=== PATIENT | male | born 1960 | race Caucasian/White ===

== ENCOUNTER 2019-11-22 19:59 | Inpatient (IN) ==
[2019-11-22 20:21] LABS: Immature Granulocytes % 0.9 % (0-4); Lymphocytes % 9.1 %
[2019-11-22 20:25] LABS: Basophils # 0.1 K/mcL (0.0-0.2); Basophils % 0.5 %; Eosinophils % 0.1 %; Hemoglobin 16.4 g/dL (12.9-16.9); Lymphocytes # 0.9 K/mcL (0.6-4.6); Mean Corpuscular HGB Conc 29.5 g/dL (31.6-35.5); Mean Corpuscular Hemoglobin 28.3 pg (28.0-33.3); Mean Platelet Volume 8.9 fL (9.4-12.4); Monocytes # 1.1 K/mcL (0.0-1.3); Monocytes % 11.2 %; Neutrophils # 7.9 K/mcL (1.6-8.9); Nucleated Red Blood Cells 2.1 /100 WBC (0); Platelet Count 188 K/mcL (140-400); Red Blood Count 5.79 M/mcL (4.19-5.50); Red Cell Distribution Width 18.4 % (11.5-14.5); Segmented Neutrophils % 78.2 %; White Blood Count 10.1 K/mcL (4.3-11.1)
[2019-11-22 20:27] LABS: Hematocrit 55.6 % (37.5-50.1)
[2019-11-22 20:41] LABS: BUN/Creatinine Ratio 54 (6-26); Blood Urea Nitrogen 43 mg/dL (6-20); Calcium 9.3 mg/dL (8.6-10.3); Carbon Dioxide 37 mEq/L (23-29); Chloride 94 mEq/L (98-107); Glucose 155 mg/dL (70-105); Osmolality,Calculated 292 (280-300); Potassium 5.2 mEq/L (3.5-5.1); Sodium 134 mEq/L (136-145); eGFR For African Americans > 60 (> 60); eGFR For Non-African Americans > 60 (> 60)
[2019-11-22 20:42] LABS: Troponin I < 0.03 ng/mL (< 0.04)
[2019-11-22] MEDS ORDERED: Furosemide 60 MG in 0.9 % Sodium Chloride 50 ML IV ONE (21:14)
[2019-11-22] MEDS ORDERED: Furosemide 40 MG/4 ML VIAL IVP ONE (21:25)
[2019-11-22 21:36] LABS: Adenovirus Not Detected (Not Detect); Bordetella Pertussis Not Detected (Not Detect); Chlamydophila pneumoniae Not Detected (Not Detect); Coronavirus 229E Not Detected (Not Detect); Coronavirus HKU1 Not Detected (Not Detect); Coronavirus NL63 Not Detected (Not Detect); Coronavirus OC43 Not Detected (Not Detect); Human Metapneumovirus Not Detected (Not Detect); Human Rhinovirus/Enterovirus Not Detected (Not Detect); Influenza A Subtype 2009 H1 Not Detected (Not Detect); Influenza B Not Detected (Not Detect); Mycoplasma pneumoniae Not Detected (Not Detect); Parainfluenza Virus 1 Not Detected (Not Detect); Parainfluenza Virus 2 Not Detected (Not Detect); Parainfluenza Virus 3 Not Detected (Not Detect); Parainfluenza Virus 4 Not Detected (Not Detect); Respiratory Syncytial Virus Not Detected (Not Detect); SARS-CoV-2 Not Detected (Not Detect)
[2019-11-22] MEDS ORDERED: Ipratropium/Albuterol Neb 3 ML IH ONE (21:42)
[2019-11-22] MEDS ORDERED: Dexamethasone 4 MG/ML VIAL IVP ONE (21:42)
[2019-11-22 21:53] LABS: ABG Base Excess 7 mEq/L (-2 to 3); ABG HCO3 42 mEq/L (21-27); ABG Oxygen Saturation 90 % (95-98); ABG PCO2 106 mmHg (35-45); ABG PO2 77 mmHg (85-104); ABG TCO2 45 mEq/L (20-26)
[2019-11-22] MEDS ORDERED: *HR* Promethazine 25 MG/ML VIAL IVP PRN (22:13)
[2019-11-22] MEDS ORDERED: Naloxone 0.4 MG/ML INJ IVP PRN (22:13)
[2019-11-22] MEDS: levoFLOXacin 750 MG/150 ML 750 MG/150 ML BAG IVPB SCH (23:25)
[2019-11-23 00:03] LABS: ABG Base Excess 4 mEq/L (-2 to 3); ABG HCO3 42 mEq/L (21-27); ABG Oxygen Saturation 90 % (95-98); ABG PCO2 127 mmHg (35-45); ABG PH 7.13 pH Units (7.32-7.45); ABG PO2 84 mmHg (85-104); ABG TCO2 46 mEq/L (20-26); Blood Gas Modality BiLevel
[2019-11-23] MEDS ORDERED: Furosemide 40 MG/4 ML VIAL ONE ×2 (00:04→15:48)
[2019-11-23] MEDS ORDERED: Furosemide 40 MG/4 ML VIAL IVP ONE ×2 (00:07→15:50)
[2019-11-23] MEDS: FentaNYL (PF) 1,000 MCG/100 ML IV.SOLN IVC SCH ×2 (01:20→08:32)
[2019-11-23] MEDS ORDERED: Perflutren Lipid Microsphere 1.3 ML in 0.9 % Sodium Chloride 8.7 ML IVP PRN (01:48)
[2019-11-23] MEDS ORDERED: Dextrose Gel 15 GM/37.5 ML TUBE PO PRN ×2 (01:50)
[2019-11-23] MEDS ORDERED: *HR* Dextrose 50 % in Water (Vial) 50 ML VIAL IVP PRN (01:50)
[2019-11-23] MEDS ORDERED: D5% in Water 1,000 ML IVC PRN (01:50)
[2019-11-23 02:12] LABS: ABG Base Excess 8 mEq/L (-2 to 3); ABG HCO3 36 mEq/L (21-27); ABG Oxygen Saturation 95 % (95-98); ABG PCO2 58 mmHg (35-45); ABG PO2 80 mmHg (85-104); ABG TCO2 38 mEq/L (20-26); Blood Gas Modality ASSIST CONTROL; Blood Gas VT 500 cc
[2019-11-23] MEDS: Artificial Tears SOLN 15 ML BOTTLE BOTH EYES SCH ×5 (05:06→20:21)
[2019-11-23] MEDS: Insulin LISPRO 300 UNITS/3 ML VIAL SQ SCH ×3 (05:09→18:43)
[2019-11-23] MEDS ORDERED: *HR* Heparin 5,000 UNIT/ML VIAL SQ SCH (06:00)
[2019-11-23 06:15] LABS: ABG Base Excess 9 mEq/L (-2 to 3); ABG HCO3 34 mEq/L (21-27); ABG Oxygen Saturation 95 % (95-98); ABG PCO2 46 mmHg (35-45); ABG PH 7.47 pH Units (7.32-7.45); ABG PO2 70 mmHg (85-104); ABG TCO2 35 mEq/L (20-26); Blood Gas Modality ASSIST CONTROL; Blood Gas VT 500 cc
[2019-11-23 06:38] LABS: Amphetamine Screen,Urine Negative ng/mL (Cutoff=1000); Barbiturate Screen,Urine Negative ng/mL (Cutoff=200)
[2019-11-23 06:39] LABS: Benzodiazepines Screen,Urine Negative ng/mL (Cutoff=300); Cannabinoid Screen,Urine Negative ng/mL (Cutoff = 50); Cocaine Screen,Urine Negative ng/mL (Cutoff= 300); Opiate Screen,Urine Negative ng/mL (Cutoff=300); Phencyclidine Screen,Urine Negative ng/mL (Cutoff=25)
[2019-11-23] MEDS ORDERED: Albuterol 2.5 MG/3 ML NEBULIZER IH PRN (07:13)
[2019-11-23] MEDS ORDERED: Isovue-370 500 ML BOTTLE IVP ONE (07:53)
[2019-11-23] MEDS: Chlorhexidine Rinse 15 ML MOUTHWASH MM SCH ×2 (08:04→20:22)
[2019-11-23 08:57] LABS: Basophils % 0.4 %; Hematocrit 53.7 % (37.5-50.1); Hemoglobin 16.3 g/dL (12.9-16.9); Immature Granulocytes % 0.8 % (0-4); Lymphocytes # 0.7 K/mcL (0.6-4.6); Lymphocytes % 8.2 %; Mean Corpuscular HGB Conc 30.4 g/dL (31.6-35.5); Mean Corpuscular Hemoglobin 27.4 pg (28.0-33.3); Mean Corpuscular Volume 90.4 fL (83.0-100.0); Mean Platelet Volume 9.7 fL (9.4-12.4); Monocytes # 0.9 K/mcL (0.0-1.3); Monocytes % 10.8 %; Neutrophils # 6.8 K/mcL (1.6-8.9); Nucleated Red Blood Cells 1.2 /100 WBC (0); Platelet Count 137 K/mcL (140-400); Red Blood Count 5.94 M/mcL (4.19-5.50); Red Cell Distribution Width 17.5 % (11.5-14.5); Segmented Neutrophils % 79.8 %; White Blood Count 8.5 K/mcL (4.3-11.1)
[2019-11-23] MEDS ORDERED: Furosemide 40 MG/4 ML VIAL IVP SCH ×2 (09:00→16:00)
[2019-11-23 09:09] LABS: INR 1.4; Prothrombin Time 15.6 Seconds (9.4-12.1)
[2019-11-23 09:22] LABS: Alanine Aminotransferase 10 Units/L (7-52); Albumin 3.4 g/dL (3.5-5.7); Albumin/Globulin Ratio 1.5 (1.1-2.2); Alkaline Phosphatase 54 Units/L (34-104); Aspartate Amino Transferase 14 Units/L (13-39); BUN/Creatinine Ratio 47 (6-26); Bilirubin,Total 0.9 mg/dL (0.3-1.0); Blood Urea Nitrogen 35 mg/dL (6-20); Carbon Dioxide 36 mEq/L (23-29); Chloride 93 mEq/L (98-107); Globulin 2.2 g/dL (2.4-3.5); Glucose 128 mg/dL (70-105); Magnesium 1.8 mg/dL (1.6-2.6); Osmolality,Calculated 292 (280-300); Phosphorous 2.9 mg/dL (2.7-4.5); Potassium 4.5 mEq/L (3.5-5.1); Sodium 136 mEq/L (136-145); Total Protein 5.6 g/dL (6.4-8.9); eGFR For African Americans > 60 (> 60); eGFR For Non-African Americans > 60 (> 60)
[2019-11-23] MEDS: Dexmedetomidine HCl 400 MCG/100 ML MLS IVC SCH ×2 (11:31→19:49)
[2019-11-23] MEDS: Pantoprazole 40 MG VIAL IVP SCH (14:32)
[2019-11-23] MEDS: *HR* Heparin 5,000 UNIT/ML VIAL SQ SCH (14:32)
[2019-11-23 14:35] LABS: ABG Base Excess 13 mEq/L (-2 to 3); ABG HCO3 41 mEq/L (21-27); ABG Oxygen Saturation 96 % (95-98); ABG PCO2 60 mmHg (35-45); ABG PH 7.44 pH Units (7.32-7.45); ABG PO2 80 mmHg (85-104); ABG TCO2 43 mEq/L (20-26); Blood Gas VT 500 cc
[2019-11-23] MEDS ORDERED: *HR* Propofol 200 MG/20 ML VIAL IVP ONE (15:28)
[2019-11-23] MEDS ORDERED: *HR* Midazolam HCl 5 MG/5 ML VIAL IVP ONE ×2 (15:28→16:01)
[2019-11-23] MEDS ORDERED: *HR* Midazolam HCl 2 MG/2 ML VIAL IVP ONE ×2 (15:28→16:01)
[2019-11-23] MEDS: Ipratropium/Albuterol Neb 3 ML IH SCH ×2 (15:59→22:43)
[2019-11-23] MEDS ORDERED: *HR* Etomidate 20 MG/10 ML AMPUL IVP ONE (16:01)
[2019-11-23 16:28] LABS: ABG Base Excess 13 mEq/L (-2 to 3); ABG HCO3 41 mEq/L (21-27); ABG Oxygen Saturation 98 % (95-98); ABG PCO2 60 mmHg (35-45); ABG PH 7.45 pH Units (7.32-7.45); ABG PO2 112 mmHg (85-104); ABG TCO2 43 mEq/L (20-26); Blood Gas Modality avaps; Blood Gas VT 550 cc
[2019-11-23] MEDS: MethylPREDNISolone 40 MG/ML VIAL IVP SCH (16:54)
[2019-11-23] MEDS: levoFLOXacin 750 MG/150 ML 750 MG/150 ML BAG IVPB SCH (17:05)
[2019-11-23] MEDS ORDERED: *HR* LORazepam 2 MG/ML VIAL IVP PRN (19:31)
[2019-11-23] MEDS ORDERED: *HR* LORazepam 2 MG/ML VIAL ONE (19:45)
[2019-11-23] MEDS: *HR* LORazepam 2 MG/ML VIAL IVP PRN (19:45)
[2019-11-24] MEDS: Dexmedetomidine HCl 400 MCG/100 ML MLS IVC SCH ×6 (00:14→22:51)
[2019-11-24] MEDS: Artificial Tears SOLN 15 ML BOTTLE BOTH EYES SCH ×7 (00:15→23:52)
[2019-11-24] MEDS: *HR* Heparin 5,000 UNIT/ML VIAL SQ SCH ×4 (00:15→20:15)
[2019-11-24] MEDS: Insulin LISPRO 300 UNITS/3 ML VIAL SQ SCH ×5 (00:29→23:52)
[2019-11-24] MEDS: Ipratropium/Albuterol Neb 3 ML IH SCH ×4 (04:06→21:59)
[2019-11-24 04:27] LABS: Basophils % 0.2 %; Eosinophils % 0.1 %; Nucleated Red Blood Cells 0.2 /100 WBC (0)
[2019-11-24 04:29] LABS: Hemoglobin 16.6 g/dL (12.9-16.9); Immature Granulocytes % 0.8 % (0-4); Immature Platelets 3.4 % (1.1-6.1); Lymphocytes # 0.7 K/mcL (0.6-4.6); Lymphocytes % 8.7 %; Mean Corpuscular Hemoglobin 27.2 pg (28.0-33.3); Mean Corpuscular Volume 90.7 fL (83.0-100.0); Mean Platelet Volume 9.2 fL (9.4-12.4); Monocytes # 0.8 K/mcL (0.0-1.3); Monocytes % 9.9 %; Platelet Count 133 K/mcL (140-400); Red Blood Count 6.11 M/mcL (4.19-5.50); Segmented Neutrophils % 80.3 %; White Blood Count 8.4 K/mcL (4.3-11.1)
[2019-11-24 04:53] LABS: BUN/Creatinine Ratio 34 (6-26); Blood Urea Nitrogen 32 mg/dL (6-20); Carbon Dioxide 41 mEq/L (23-29); Chloride 92 mEq/L (98-107); Glucose 156 mg/dL (70-105); Osmolality,Calculated 294 (280-300); Potassium 4.7 mEq/L (3.5-5.1); Sodium 137 mEq/L (136-145); eGFR For African Americans > 60 (> 60); eGFR For Non-African Americans > 60 (> 60)
[2019-11-24 05:21] LABS: Hematocrit 55.4 % (37.5-50.1); Neutrophils # 6.8 K/mcL (1.6-8.9)
[2019-11-24] MEDS: MethylPREDNISolone 40 MG/ML VIAL IVP SCH ×2 (05:59→17:59)
[2019-11-24] MEDS: Chlorhexidine Rinse 15 ML MOUTHWASH MM SCH ×2 (07:31→20:14)
[2019-11-24] MEDS: Furosemide 40 MG/4 ML VIAL IVP SCH ×2 (07:36→20:16)
[2019-11-24] MEDS: Pantoprazole 40 MG VIAL IVP SCH (07:36)
[2019-11-24] MEDS: *HR* LORazepam 2 MG/ML VIAL IVP PRN ×4 (10:11→18:12)
[2019-11-24 17:40] LABS: ABG Base Excess 17 mEq/L (-2 to 3); ABG HCO3 47 mEq/L (21-27); ABG Oxygen Saturation 93 % (95-98); ABG PCO2 70 mmHg (35-45); ABG PH 7.44 pH Units (7.32-7.45); ABG PO2 70 mmHg (85-104); ABG TCO2 50 mEq/L (20-26); Blood Gas Modality SIMV; Blood Gas VT 550 cc
[2019-11-24] MEDS: levoFLOXacin 750 MG/150 ML 750 MG/150 ML BAG IVPB SCH (17:57)
[2019-11-24] MEDS: Thiamine (B-1) 100 MG, Folic Acid 1 MG, MVI, adult with vitamin K 10 ML in 0.9 % Sodi... IVPB SCH (17:59)
[2019-11-25] MEDS: Dexmedetomidine HCl 400 MCG/100 ML MLS IVC SCH ×5 (01:30→17:49)
[2019-11-25] MEDS: Ipratropium/Albuterol Neb 3 ML IH SCH ×4 (03:37→21:45)
[2019-11-25] MEDS: Artificial Tears SOLN 15 ML BOTTLE BOTH EYES SCH ×5 (04:00→20:35)
[2019-11-25 05:41] LABS: Basophils % 0.4 %; Eosinophils % 0.1 %; Hemoglobin 17.7 g/dL (12.9-16.9); Immature Granulocytes % 0.6 % (0-4); Lymphocytes # 1.1 K/mcL (0.6-4.6); Lymphocytes % 12.7 %; Mean Corpuscular HGB Conc 30.8 g/dL (31.6-35.5); Mean Corpuscular Hemoglobin 27.7 pg (28.0-33.3); Mean Platelet Volume 8.9 fL (9.4-12.4); Monocytes % 11.4 %; Neutrophils # 6.3 K/mcL (1.6-8.9); Nucleated Red Blood Cells 0.2 /100 WBC (0); Platelet Count 124 K/mcL (140-400); Red Blood Count 6.38 M/mcL (4.19-5.50); Segmented Neutrophils % 74.8 %; White Blood Count 8.4 K/mcL (4.3-11.1)
[2019-11-25 05:44] LABS: Hematocrit 57.4 % (37.5-50.1)
[2019-11-25] MEDS: *HR* Heparin 5,000 UNIT/ML VIAL SQ SCH ×3 (05:49→20:34)
[2019-11-25] MEDS: MethylPREDNISolone 40 MG/ML VIAL IVP SCH (05:49)
[2019-11-25] MEDS: Insulin LISPRO 300 UNITS/3 ML VIAL SQ SCH ×3 (06:05→17:35)
[2019-11-25 06:23] LABS: ABG Base Excess 13 mEq/L (-2 to 3); ABG HCO3 42 mEq/L (21-27); ABG Oxygen Saturation 94 % (95-98); ABG PCO2 66 mmHg (35-45); ABG PH 7.42 pH Units (7.32-7.45); ABG PO2 72 mmHg (85-104); ABG TCO2 44 mEq/L (20-26); Blood Gas Modality BiLevel; Blood Gas VT 550 cc
[2019-11-25] MEDS: Furosemide 40 MG/4 ML VIAL IVP SCH (08:19)
[2019-11-25] MEDS: Pantoprazole 40 MG VIAL IVP SCH (08:19)
[2019-11-25] MEDS: Chlorhexidine Rinse 15 ML MOUTHWASH MM SCH ×2 (08:19→20:34)
[2019-11-25 11:27] LABS: Alanine Aminotransferase 10 Units/L (7-52); Albumin 3.7 g/dL (3.5-5.7); Albumin/Globulin Ratio 1.4 (1.1-2.2); Alkaline Phosphatase 56 Units/L (34-104); Aspartate Amino Transferase 13 Units/L (13-39); BUN/Creatinine Ratio 29 (6-26); Bilirubin,Total 1.2 mg/dL (0.3-1.0); Blood Urea Nitrogen 26 mg/dL (6-20); Calcium 9.8 mg/dL (8.6-10.3); Carbon Dioxide 43 mEq/L (23-29); Chloride 89 mEq/L (98-107); Globulin 2.6 g/dL (2.4-3.5); Glucose 180 mg/dL (70-105); Osmolality,Calculated 293 (280-300); Phosphorous 4.3 mg/dL (2.7-4.5); Potassium 4.4 mEq/L (3.5-5.1); Sodium 137 mEq/L (136-145); Total Protein 6.3 g/dL (6.4-8.9); eGFR For African Americans > 60 (> 60); eGFR For Non-African Americans > 60 (> 60)
[2019-11-25] MEDS: acetaZOLAMIDE 250 MG in Water for inj. (sterile) 5 ML IVP SCH ×2 (13:14→20:35)
[2019-11-25] MEDS: Artificial Tears SOLN 15 ML BOTTLE BOTH EYES PRN ×2 (14:37→17:41)
[2019-11-25] MEDS: levoFLOXacin 750 MG/150 ML 750 MG/150 ML BAG IVPB SCH (17:36)
[2019-11-25] MEDS: Thiamine (B-1) 100 MG, Folic Acid 1 MG, MVI, adult with vitamin K 10 ML in 0.9 % Sodi... IVPB SCH (17:36)
[2019-11-26] MEDS: Artificial Tears SOLN 15 ML BOTTLE BOTH EYES SCH ×5 (02:53→14:42)
[2019-11-26] MEDS: Insulin LISPRO 300 UNITS/3 ML VIAL SQ SCH ×5 (02:53→23:51)
[2019-11-26] MEDS: Ipratropium/Albuterol Neb 3 ML IH SCH ×4 (03:38→21:37)
[2019-11-26 03:50] LABS: Basophils % 0.3 %; Eosinophils # 0.1 K/mcL (0.0-0.6); Eosinophils % 1.3 %; Hematocrit 52.9 % (37.5-50.1); Hemoglobin 16.6 g/dL (12.9-16.9); Immature Granulocytes % 0.5 % (0-4); Lymphocytes # 1.2 K/mcL (0.6-4.6); Mean Corpuscular HGB Conc 31.4 g/dL (31.6-35.5); Mean Corpuscular Hemoglobin 27.9 pg (28.0-33.3); Mean Corpuscular Volume 88.9 fL (83.0-100.0); Mean Platelet Volume 9.3 fL (9.4-12.4); Monocytes % 9.6 %; Neutrophils # 7.8 K/mcL (1.6-8.9); Platelet Count 125 K/mcL (140-400); Red Blood Count 5.95 M/mcL (4.19-5.50); Red Cell Distribution Width 17.8 % (11.5-14.5); Segmented Neutrophils % 76.3 %; White Blood Count 10.3 K/mcL (4.3-11.1)
[2019-11-26 04:00] LABS: BUN/Creatinine Ratio 28 (6-26); Blood Urea Nitrogen 23 mg/dL (6-20); Carbon Dioxide 37 mEq/L (23-29); Chloride 92 mEq/L (98-107); Glucose 104 mg/dL (70-105); Osmolality,Calculated 282 (280-300); Potassium 3.3 mEq/L (3.5-5.1); Sodium 134 mEq/L (136-145); eGFR For African Americans > 60 (> 60); eGFR For Non-African Americans > 60 (> 60)
[2019-11-26] MEDS: *HR* Heparin 5,000 UNIT/ML VIAL SQ SCH ×3 (05:40→21:45)
[2019-11-26] MEDS: Pantoprazole 40 MG VIAL IVP SCH (08:08)
[2019-11-26] MEDS: MethylPREDNISolone 40 MG/ML VIAL IVP SCH (08:08)
[2019-11-26] MEDS: Chlorhexidine Rinse 15 ML MOUTHWASH MM SCH (08:14)
[2019-11-26] MEDS: Acetaminophen 325 MG TABLET PO PRN ×2 (16:14→23:50)
[2019-11-26] MEDS: levoFLOXacin 750 MG/150 ML 750 MG/150 ML BAG IVPB SCH (18:04)
[2019-11-26] MEDS: Thiamine (B-1) 100 MG, Folic Acid 1 MG, MVI, adult with vitamin K 10 ML in 0.9 % Sodi... IVPB SCH (18:19)
[2019-11-26] MEDS ORDERED: Potassium Chloride Elixir 20 MEQ/15 ML UDC PO ONE (19:59)
[2019-11-26] MEDS: Furosemide 40 MG/4 ML VIAL IVP SCH (21:44)
[2019-11-27] MEDS: Ipratropium/Albuterol Neb 3 ML IH SCH ×4 (03:42→21:36)
[2019-11-27 03:49] LABS: Basophils % 0.1 %; Eosinophils % 0.1 %; Hematocrit 52.6 % (37.5-50.1); Hemoglobin 16.3 g/dL (12.9-16.9); Immature Granulocytes % 0.5 % (0-4); Lymphocytes # 0.3 K/mcL (0.6-4.6); Lymphocytes % 3.9 %; Mean Corpuscular Hemoglobin 27.1 pg (28.0-33.3); Mean Corpuscular Volume 87.5 fL (83.0-100.0); Mean Platelet Volume 9.7 fL (9.4-12.4); Monocytes # 0.4 K/mcL (0.0-1.3); Monocytes % 5.3 %; Platelet Count 118 K/mcL (140-400); Red Blood Count 6.01 M/mcL (4.19-5.50); Red Cell Distribution Width 17.3 % (11.5-14.5); Segmented Neutrophils % 90.1 %; White Blood Count 7.8 K/mcL (4.3-11.1)
[2019-11-27 04:08] LABS: Alanine Aminotransferase 30 Units/L (7-52); Albumin 3.2 g/dL (3.5-5.7); Albumin/Globulin Ratio 1.3 (1.1-2.2); Alkaline Phosphatase 46 Units/L (34-104); Amylase 64 Units/L (29-103); Aspartate Amino Transferase 31 Units/L (13-39); BUN/Creatinine Ratio 25 (6-26); Bilirubin,Direct 0.7 mg/dL (0.0-0.2); Bilirubin,Indirect 1.3 mg/dL (0.0-1.0); Blood Urea Nitrogen 19 mg/dL (6-20); Calcium 8.9 mg/dL (8.6-10.3); Carbon Dioxide 33 mEq/L (23-29); Chloride 95 mEq/L (98-107); Globulin 2.4 g/dL (2.4-3.5); Glucose 100 mg/dL (70-105); Lipase 60 Units/L (11-82); Magnesium 1.8 mg/dL (1.6-2.6); Osmolality,Calculated 288 (280-300); Phosphorous 3.9 mg/dL (2.7-4.5); Potassium 3.5 mEq/L (3.5-5.1); Sodium 138 mEq/L (136-145); Total Protein 5.6 g/dL (6.4-8.9); eGFR For African Americans > 60 (> 60); eGFR For Non-African Americans > 60 (> 60)
[2019-11-27] MEDS: *HR* Heparin 5,000 UNIT/ML VIAL SQ SCH ×3 (05:36→22:00)
[2019-11-27] MEDS: Insulin LISPRO 300 UNITS/3 ML VIAL SQ SCH ×4 (05:36→23:43)
[2019-11-27] MEDS: Furosemide 40 MG/4 ML VIAL IVP SCH ×2 (08:16→21:59)
[2019-11-27] MEDS: Acetaminophen 325 MG TABLET PO PRN (08:16)
[2019-11-27] MEDS: MethylPREDNISolone 40 MG/ML VIAL IVP SCH (08:17)
[2019-11-27] MEDS: Pantoprazole 40 MG VIAL IVP SCH (08:17)
[2019-11-27] MEDS: Piperacillin/Tazobactam 3.375 GM in 0.9 % Sodium Chloride Mini Bag 100 ML IVPB SCH ×3 (10:30→23:45)
[2019-11-27] MEDS: Vancomycin 2,000 MG/520 ML IV.SOLN IVPB SCH ×2 (12:34→21:59)
[2019-11-27] MEDS: Sennosides/Docusate Sodium TABLET PO SCH ×2 (12:35→19:26)
[2019-11-27] MEDS: Dexmedetomidine HCl 400 MCG/100 ML MLS IVC SCH ×2 (18:07→23:47)
[2019-11-28] MEDS: Ipratropium/Albuterol Neb 3 ML IH SCH ×4 (03:37→21:29)
[2019-11-28 04:39] LABS: Basophils % 0.3 %; Mean Corpuscular Volume 90.3 fL (83.0-100.0); Red Blood Count 6.38 M/mcL (4.19-5.50)
[2019-11-28 04:41] LABS: Hemoglobin 17.1 g/dL (12.9-16.9); Immature Granulocytes % 0.4 % (0-4); Immature Platelets 4.5 % (1.1-6.1); Lymphocytes # 0.2 K/mcL (0.6-4.6); Lymphocytes % 2.6 %; Mean Corpuscular HGB Conc 29.7 g/dL (31.6-35.5); Mean Corpuscular Hemoglobin 26.8 pg (28.0-33.3); Mean Platelet Volume 9.8 fL (9.4-12.4); Monocytes # 0.5 K/mcL (0.0-1.3); Monocytes % 6.9 %; Red Cell Distribution Width 18.2 % (11.5-14.5); Segmented Neutrophils % 89.8 %; White Blood Count 7.4 K/mcL (4.3-11.1)
[2019-11-28 04:45] LABS: Hematocrit 57.6 % (37.5-50.1); Neutrophils # 6.7 K/mcL (1.6-8.9); Platelet Count 84 K/mcL (140-400)
[2019-11-28 04:59] LABS: Alanine Aminotransferase 48 Units/L (7-52); Albumin 3.2 g/dL (3.5-5.7); Albumin/Globulin Ratio 1.2 (1.1-2.2); Alkaline Phosphatase 47 Units/L (34-104); Aspartate Amino Transferase 42 Units/L (13-39); BUN/Creatinine Ratio 22 (6-26); Bilirubin,Total 1.2 mg/dL (0.3-1.0); Blood Urea Nitrogen 20 mg/dL (6-20); Calcium 8.8 mg/dL (8.6-10.3); Carbon Dioxide 35 mEq/L (23-29); Chloride 98 mEq/L (98-107); Globulin 2.7 g/dL (2.4-3.5); Glucose 112 mg/dL (70-105); Magnesium 1.8 mg/dL (1.6-2.6); Osmolality,Calculated 293 (280-300); Phosphorous 3.5 mg/dL (2.7-4.5); Potassium 3.6 mEq/L (3.5-5.1); Sodium 140 mEq/L (136-145); Total Protein 5.9 g/dL (6.4-8.9); eGFR For African Americans > 60 (> 60); eGFR For Non-African Americans > 60 (> 60)
[2019-11-28 05:44] LABS: Anisocytosis 1+ (Not Present); Platelet Estimate Decreased (Normal)
[2019-11-28] MEDS: Insulin LISPRO 300 UNITS/3 ML VIAL SQ SCH ×4 (05:52→23:12)
[2019-11-28] MEDS: *HR* Heparin 5,000 UNIT/ML VIAL SQ SCH ×3 (05:55→19:48)
[2019-11-28] MEDS: Furosemide 40 MG/4 ML VIAL IVP SCH ×2 (08:14→19:48)
[2019-11-28] MEDS: Pantoprazole 40 MG VIAL IVP SCH (08:14)
[2019-11-28] MEDS: MethylPREDNISolone 40 MG/ML VIAL IVP SCH (08:15)
[2019-11-28] MEDS: Piperacillin/Tazobactam 3.375 GM in 0.9 % Sodium Chloride Mini Bag 100 ML IVPB SCH ×3 (08:15→23:13)
[2019-11-28] MEDS: Sennosides/Docusate Sodium TABLET PO SCH ×2 (08:16→19:48)
[2019-11-28] MEDS: Dexmedetomidine HCl 400 MCG/100 ML MLS IVC SCH ×2 (15:33→23:14)
[2019-11-29] MEDS: Ipratropium/Albuterol Neb 3 ML IH SCH ×2 (03:25→10:48)
[2019-11-29] MEDS ORDERED: Furosemide 20 MG/2 ML VIAL IVP ONE ×2 (04:31→04:32)
[2019-11-29 04:34] LABS: Basophils % 0.3 %; Eosinophils % 0.9 %; Red Cell Distribution Width 18.2 % (11.5-14.5)
[2019-11-29 04:35] LABS: Eosinophils # 0.1 K/mcL (0.0-0.6); Hemoglobin 17.7 g/dL (12.9-16.9); Immature Granulocytes % 0.4 % (0-4); Immature Platelets 5.6 % (1.1-6.1); Lymphocytes # 0.5 K/mcL (0.6-4.6); Lymphocytes % 5.5 %; Mean Corpuscular HGB Conc 30.3 g/dL (31.6-35.5); Mean Corpuscular Hemoglobin 28.1 pg (28.0-33.3); Mean Corpuscular Volume 92.7 fL (83.0-100.0); Mean Platelet Volume 10.7 fL (9.4-12.4); Monocytes # 0.8 K/mcL (0.0-1.3); Monocytes % 8.4 %; Neutrophils # 7.9 K/mcL (1.6-8.9); Red Blood Count 6.31 M/mcL (4.19-5.50); Segmented Neutrophils % 84.5 %; White Blood Count 9.4 K/mcL (4.3-11.1)
[2019-11-29 04:42] LABS: Hematocrit 58.5 % (37.5-50.1); Platelet Count 86 K/mcL (140-400)
[2019-11-29 04:53] LABS: BUN/Creatinine Ratio 30 (6-26); Blood Urea Nitrogen 21 mg/dL (6-20); Calcium 8.7 mg/dL (8.6-10.3); Carbon Dioxide 36 mEq/L (23-29); Chloride 96 mEq/L (98-107); Glucose 151 mg/dL (70-105); Osmolality,Calculated 292 (280-300); Potassium 3.4 mEq/L (3.5-5.1); Sodium 138 mEq/L (136-145); eGFR For African Americans > 60 (> 60); eGFR For Non-African Americans > 60 (> 60)
[2019-11-29] MEDS: Insulin LISPRO 300 UNITS/3 ML VIAL SQ SCH (05:51)
[2019-11-29] MEDS: *HR* Heparin 5,000 UNIT/ML VIAL SQ SCH (05:51)
[2019-11-29] MEDS ORDERED: Perflutren Lipid Microsphere 1.3 ML in 0.9 % Sodium Chloride 8.7 ML IVP PRN (07:17)
[2019-11-29] MEDS ORDERED: Lidocaine -MPF 1% 5 ML AMPUL INFILT ONE (08:15)
[2019-11-29] MEDS ORDERED: Saline Nasal Spray 44 ML BOTTLE NS PRN (08:28)
[2019-11-29] MEDS ORDERED: Potassium Chloride Elixir 20 MEQ/15 ML UDC PO ONE (10:38)
[2019-11-29] MEDS: Pantoprazole 40 MG VIAL IVP SCH (10:43)
[2019-11-29] MEDS: Furosemide 40 MG/4 ML VIAL IVP SCH (10:43)
[2019-11-29] MEDS: MethylPREDNISolone 40 MG/ML VIAL IVP SCH (10:44)
[2019-11-29] MEDS: Piperacillin/Tazobactam 3.375 GM in 0.9 % Sodium Chloride Mini Bag 100 ML IVPB SCH (10:44)
[2019-11-29] MEDS: Sennosides/Docusate Sodium TABLET PO SCH (10:44)
[2019-11-29] MEDS ORDERED: *HR* Midazolam HCl 5 MG/5 ML VIAL IVP ONE ×4 (12:15→13:28)
[2019-11-29] MEDS ORDERED: *HR* FentaNYL (PF) 100 MCG/2 ML VIAL ONE ×2 (12:15→12:58)
[2019-11-29] MEDS ORDERED: *HR* Vasopressin 20 UNIT/ML VIAL ONE (12:16)
[2019-11-29] MEDS ORDERED: *HR* PHENYLEPHRINE 1,000 MCG/10 ML SYRINGE IVP ONE (12:17)
[2019-11-29] MEDS ORDERED: Lidocaine -MPF 2% 2 ML VIAL ONE (12:17)
[2019-11-29] MEDS ORDERED: *HR* Etomidate 40 MG/20 ML VIAL IVP ONE (12:17)
[2019-11-29] MEDS ORDERED: FentaNYL (PF) 1,000 MCG/100 ML IV.SOLN IVC SCH (12:45)
[2019-11-29] MEDS ORDERED: Midazolam HCl 50 MG/100 ML IV.SOLN IVC SCH (12:45)
[2019-11-29] MEDS ORDERED: *HR* Rocuronium Bromide 50 MG/5 ML VIAL ONE (12:58)
[2019-11-29] MEDS ORDERED: *HR* FentaNYL (PF) 100 MCG/2 ML VIAL IVP ONE (13:10)
[2019-11-29] MEDS ORDERED: *HR* Rocuronium Bromide 50 MG/5 ML VIAL IVP ONE (13:26)
[2019-11-29] MEDS ORDERED: Norepinephrine 4 MG/254 ML IV.SOLN IVC SCH (13:45)
[2019-11-29 14:07] LABS: ABG Base Excess 9 mEq/L (-2 to 3); ABG HCO3 37 mEq/L (21-27); ABG Oxygen Saturation 82 % (95-98); ABG PCO2 58 mmHg (35-45); ABG PH 7.41 pH Units (7.32-7.45); ABG PO2 47 mmHg (85-104); ABG TCO2 39 mEq/L (20-26); Blood Gas Modality ASSIST CONTROL; Blood Gas VT 600 cc
[2019-11-29 14:31] VITALS: BP 122/88
== END 2019-11-29 14:20 | disposition short-term general hospital (02) | DRG 208 ==
LOC: 2NNU 19:59 → EMEROOARM 19:59 → 2NNU 22:59 → SUATTDRO 11-23 10:11 → ICNU 11-26 17:39
PROVIDERS: ADMIT Internal Medicine; ATTEND Student in an Organized Health Care Education/Training Program